=== PATIENT | female | born 1935 | race Caucasian/White ===

== ENCOUNTER → 2016-07-26 | Outpatient (CLI) | payer OTHER, BC | LOC: FIMAGING 09:51 | PROVIDERS: ATTEND Physician Assistant | DX: J40 Bronchitis, not specified as acute or chronic (principal); I51.7 Cardiomegaly ==

== ENCOUNTER → 2016-09-12 | Outpatient (CLI) | payer BC, OTHER | LOC: BMCIMAGING 08:22 | PROVIDERS: ATTEND Physician Assistant | DX: M17.12 Unilateral primary osteoarthritis, left knee (principal) ==

== ENCOUNTER 2016-09-24 12:36 | Emergency (ER) | payer BC, OTHER ==
[2016-09-24 12:46] VITALS: TEMP 98.2
--- NOTE | 2016-09-24 14:06 | EDPHY ---
H & P Time Seen by Provider: 09/24/16 14:03 HPI/ROS: HPI: Ms. Nice is a 81 yrs, female who presents with Chief Complaint: left knee pain Location: left knee Quality: pain Duration: Weeks Signs and Symptoms: Positive mild swelling, no radiation, no weakness, no redness, no warmth Timing: Gradual onset and now constant, pain worsened with weight-bearing Severity: 09/21 Context: Patient complains of left knee pain for 2-4 weeks. 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 Was seen by orthopedics, Dr. Langley, who performed an x-ray that showed per patient degenerative changes. Was given a corticosteroid injection in her left knee approximately 2 weeks ago. Modifying Factors: Oxycodone that she had left over approximately 5 mg tab with no relief Comment: ROS: Eyes: No blurred vision Respiratory: No shortness of breath, no cough Cardiovascular: No chest pain Gastrointestinal: No nausea, no vomiting no diarrhea Genitourinary: No dysuria Extremities: No myalgias Neurologic: No weakness, no numbness Skin: No rashes Hematologic: No bruising, no bleeding MEDICAL/SURGICAL HISTORY: Back surgery. Knee scope. right foot drop. Past Medical/Surgical History: Hypertension, osteoarthritis, chronic back pain Social History: Retired. Lives alone in a ranch style house. Use to be an avid skier. Smoking Status: Never smoked Physical Exam: CONSTITUTIONAL: Pleasant overweight adult white female, awake and alert, no obvious distress HEENT: Atraumatic and normocephalic, PERRL, EOMI. Tympanic membranes clear. . Oropharynx clear, no exudate and moist pink mucosa. Airway patent. No lymphadenopathy. No meningismus. Cardiovascular: Normal S1/S2, regular rate, regular rhythm, without murmur rub or gallop. PULMONARY/CHEST: Symmetrical and nontender. Clear to auscultation bilaterally Good air movement. No accessory muscle usage. ABDOMEN: Soft, nondistended, nontender, no rebound, no guarding, no peritoneal signs, no masses or organomegaly. No CVAT. EXTREMITIES: 2/2 pulses, no deformities, no clubbing, no cyanosis or edema. Left knee mild suprapatellar effusion assignment limited by fatty body habitus. Full extension. Flexion only to 80 secondary to pain. Pain with valgus stress. No pain with varus stress. Pain with anterior drawer sign. No pain with posterior drawer sign. NEUROLOGICAL: no focal neuro deficits. GCS 15. light touch sensation intact. SKIN: Warm and dry, no erythema. no rash. Good capillary refill. Constitutional: Initial Vital Signs Temperature (C) 36.8 C 09/24/16 12:44 Heart Rate 84 09/24/16 12:44 Respiratory Rate 18 09/24/16 12:44 Blood Pressure 229/109 H 09/24/16 12:44 O2 Sat (%) 90 L 09/24/16 12:44 O2 Delivery Mode Room Air Allergies/Adverse Reactions: bananas Allergy (Severe, Uncoded 09/24/16 12:42) tape Allergy (Severe, Uncoded 09/24/16 12:42) Home Medications: Medication Instructions Recorded Carvedilol [Coreg (RX)] 12.5 mg PO BIDMEAL 03/31/14 Herbals/Supplements -Info Only 1 ea PO DAILY 03/31/14 Oxycodone HCl [Oxyir] 5 mg PO Q4-8PRN #20 capsule 03/31/14 Areds 09/24/16 Oxycodone HCl/Acetaminophen 1 each PO Q4-6PRN PRN #12 tablet 09/24/16 [Oxycodon-Acetaminophen 7.5-325] Potassium 09/24/16 hydrALAZINE 09/24/16 Medical Decision Making - Diagnostics Imaging Results: Imaging Impressions Knee X-Ray 09/24/16 13:33 Impression: Tricompartment degenerative change of the left knee with a stable appearance, more severe in the patellofemoral compartment. Mild suprapatellar joint effusion. ED Course/Re-evaluation: X-ray, IV medication X-ray shows tricompartmental degenerative changes as well as patellofemoral degenerative change and narrow joint space, with mild joint effusion. attempt x 1 for suprapatellar aspiration with prep chloroprep x 3, with no synovial aspirated. Patient tolerated procedure well. Patient will be placed in a knee immobilizer, RICE, weight-bearing as tolerated , walker which patient already has at home. Patient will be assisted by friend/family member. Follow up with Orthopedics. Recommend MRI left knee outpatient. Concern for ligamentous injury; MCL and ACL. - Data Points Medications Given: Discontinued Medications Ketorolac Tromethamine (Toradol) 30 mg IVP EDNOW ONE Stop: 09/24/16 14:08 Last Admin: 09/24/16 14:11 Dose: 30 mg Morphine Sulfate (Morphine) 4 mg IVP EDNOW ONE Stop: 09/24/16 14:54 Last Admin: 09/24/16 14:56 Dose: 4 mg Departure - Departure Disposition: Home, Routine, Self-Care Clinical Impression: Osteoarthritis of left knee Qualifiers: Osteoarthritis type: primary Qualified Code(s): M17.12 - Unilateral primary osteoarthritis, left knee Derangement of knee ligament Qualifiers: Laterality: left Qualified Code(s): M23.8X2 - Other internal derangements of left knee Condition: Fair Instructions: Knee Sprain (ED), Knee Immobilizer (ED) Additional Instructions: Patient would benefit from a left knee MRI outpatient. Wherein knee immobilizer 04/09 in use walker to aid in ambulation. Referrals: Luis Fernando Acosta MD [Primary Care Provider] - As per Instructions Herb Langley MD [Medical Doctor] - 1-2 days without fail Prescriptions: Oxycodone HCl/Acetaminophen [Oxycodon-Acetaminophen 7.5-325] 1 each PO Q4-6PRN PRN #12 tablet PRN Reason: Pain, Moderate
[2016-09-24] MEDS ORDERED: KETOROLAC 30 MG/1 ML SDV IVP ONE (14:07)
[2016-09-24 14:59] VITALS: PULSE 78
[2016-09-24 15:48] VITALS: O2SAT 91
[2016-09-24 16:40] VITALS: BP 234/135
[2016-09-24 17:41] VITALS: RESP 18
== END 2016-09-24 17:35 | disposition home or self-care (01) ==
PROC: 0M9P3ZZ Drainage of Left Knee Bursa and Ligament, Percutaneous Approach (ICD-10-PCS; principal; 2016-09-24)
DX: M17.12 Unilateral primary osteoarthritis, left knee (principal); M23.8X2 Other internal derangements of left knee; I10 Essential (primary) hypertension
CPT/HCPCS: 96374; J1885; L1830